=== PATIENT | female | born 1955 | race Caucasian/White ===

== ENCOUNTER 2016-11-18 07:34 | Emergency (ER) | payer MEDICARE ==
[2016-10-06 12:37] VITALS: BMI 23.8
[~2016-11-18 07:34] MED LIST: ASPIRIN81 MG PO; COUMADIN2.5 MG PO; DIOVAN320 MG PO; DYAZIDE 37.5/251 CAP PO; LEVAQUIN500 MG PO; LOPRESSOR25 MG PO; NORVASC5 MG PO
== END 2016-11-18 09:11 | disposition home or self-care (01) ==
LOC: D.ER 07:34
DX: J44.1 Chronic obstructive pulmonary disease with (acute) exacerbation (principal); I48.91 Unspecified atrial fibrillation; F32.9 Major depressive disorder, single episode, unspecified; E78.5 Hyperlipidemia, unspecified; I05.9 Rheumatic mitral valve disease, unspecified; Z95.0 Presence of cardiac pacemaker; N18.3 Chronic kidney disease, stage 3 (moderate); I12.9 Hypertensive chronic kidney disease with stage 1 through stage 4 chronic kidney disease, or unspecified chronic kidney disease

== ENCOUNTER 2016-12-29 11:24 | Outpatient (CLI) | payer MEDICARE ==
[~2016-12-29] VITALS: Ht 154.9 cm; Wt 77.3 kg
--- NOTE | ~2016-12-29 | HEMODYNAMI ---
PATIENT:JACEY SALINAS MEDICAL RECORD: [id number] : 57 LOCATION:[facility] ADMISSION DATE: 12/29/16 Generatedon:12/29/201615:09 Patient name: JACEY SALINAS Patient #: [id number] SSN: : 1955 Date of study: 12/29/2016 Page: Of Hemodynamic Procedure Report Patient Data Patient Demographics Procedure consent was obtained First Name: JACEY Gender: Female Last Name: RITA : 1955 [facility] Initial: C Age: 61 year(s) Patient #: [id number] Race: Additional ID: [id number] Contact details [address]: [address] [place] [address] State: [place] City: [place] Zip code: [address] Past Medical History Allergies Allergen Reaction Date Comments Reported Iodine 12/29/2016 Sulfa drugs 12/29/2016 Other allergy 12/29/2016 HCTZ, Macrobid Admission Admission Data Admission Date: 12/29/2016 Admission Time: 11:24 Lab Results Lab Result Date: 12/29/2016 Lab Result Time: 0:00 Biochemistry Name Units Result Min Max Creatinine mg/dl 1.4 --(----)*- 0.6 1.3 CBC Name Units Result Min Max Hemoglobin g/dl 11.1 *-(----)-- 13.5 17.5 Procedure Procedure Types Cath Procedure Diagnostic Procedure C [facility] w/Coronaries Miscellaneous Procedures Moderate Sedation up to 15 minutes Procedure Description Procedure Date Procedure Date: 12/29/2016 Procedure Start Time: 14:57 Procedure End Time: 15:09 Procedure Staff Name Function Jonas Hubbard MD Performing Physician Lucila Macias RN Nurse Bert Zheng RT Swimming Pool Maintenance Praveen Mckinney RT Scrub Juliette Ortega RT Monitor Procedure Data Cath Procedure Fluoroscopy Diagnostic fluoroscopy Total fluoroscopy Time: 1.3 time: 1.3 min min Diagnostic fluoroscopy Total fluoroscopy dose: 280 dose: 280 mGy mGy Contrast Material Contrast Material Type Amount (ml) Isovue 300 66 Entry Location Entry Primary Successful Side Size Upsize Upsize Entry Closure Succes sful Closure Location (Fr) 1 (Fr) 2 (Fr) Remarks Device Remarks Femoral Right 5 Fr Exoseal artery Estimated blood loss: 5 ml Diagnostic catheters Device Type Used For End Catheter Placement Cordis 5Fr JL 4.0 Left Coronary Catheter (MP) Angiography Cordis 5Fr 3DRC Catheter Right Coronary (MP) Angiography Cordis 5Fr Pigtail LV Angiography Catheter (MP) Procedure Complications No complications Procedure Medications Medication Administration Route Dosage Oxygen NC 2 l/min Lidocaine 2% added to field 20 0.9% NaCl I.V. 100 ml/hr Heparin Flush Bag added to field 2 bags (1000units/500ml NS) Versed I.V. 1 mg Fentanyl I.V. 50 mcg Versed I.V. 1 mg Fentanyl I.V. 50 mcg Versed I.V. 1 mg Fentanyl I.V. 25 mcg Versed I.V. 0.5 mg Hemodynamics Rest HGB: 11.1 (g/dl) Heart Rate: 60 (bpm) Pressure Samples Time Site Value (mmHg) Purpose Heart Use Rate(bpm) 15:03 LV 145/19,34 EDP 51 Gradients Valve Time Site Site Mean SEP/DFP Peak To Heart Use 1 2 (mmHg) (sec/min) Peak Rate (mmHg) (bpm) Aortic 15:04 LV AO 70 Snapshots Pre Cath Intra NCS Post Cath Vital Signs Time Heart Resp SPO2 etCO2 [id number] NIBP (mmHg) Rhythm Pain Sedation Rate (ipm) (%) (mmHg) (mmHg) Status Level (bpm) 14:47:45 59 20 98 0 0 147/80(125) NSR 0 (11) 10(A) , No pain 14:52:03 112 20 92 0 0 152/84(131) NSR 0 (11) 10(A) , No pain 14:56:27 60 19 99 0 0 160/72(135) NSR 0 (11) 9(A) , No pain 15:00:43 59 17 100 0 0 149/87(104) NSR 0 (11) 9(A) , No pain 15:05:44 60 16 99 0 0 143/86(123) NSR 0 (11) 9(A) , No pain 15:08:10 60 16 100 0 0 149/90(122) NSR 0 (11) 10(A) , No pain Medications Time Medication Route Dose Verified Delivered Reason Notes Effe ctiveness by by 14:45:22 Oxygen NC 2 Jonas Gaytan used for l/min [facility] small business banking officer 14:45:32 Lidocaine 2% added 20ml Jonas Mcdaniel for local to vial [facility]. John anesthetic field MD PATE 14:45:46 0.9% NaCl I.V. 100 Jonas Quezadaie Per ml/hr [facility] Macias RN physician 14:46:03 Heparin Flush added 2 Jonas Quezadaie used for Bag to bags [facility] small business banking officer (1000units/500ml field PATE NS) 14:54:09 Versed I.V. 1 mg Jonas Quezadaie for Haydee Macias RN sedation 14:54:14 Fentanyl I.V. 50 Jonas Buffie for mcg [facility] RN sedation 14:56:46 Versed I.V. 1 mg Jonas Quezadaie for [facility] RN sedation 14:56:50 Fentanyl I.V. 50 Jonas Quezadaie for mcg [facility] RN sedation 14:59:38 Versed I.V. 1 mg Jonas Quezadaie for [facility] RN sedation 14:59:42 Fentanyl I.V. 25 Jonas Quezadaie for mcg [facility] RN sedation 15:03:18 Versed I.V. 0.5 Jonas Buffie for mg [facility] RN sedation Procedure Log Time Note 14:32:08 Bert RUDOLPH(R) sent for patient. Start room use. 14:32:09 Time tracking: Regular hours 14:32:14 Plan of Care:Hemodynamics will remain stable., Cardiac rhythm will remain stable., Comfort level will be maintained., Respiratory function will remain adequate., Patient/ family verbilizes understanding of procedure., Procedure tolerated without complication., Recovers from procedure without complications.. 14:45:22 Oxygen 2 l/min NC was given by Lucila Macias RN; used for procedure; 14:45:32 Lidocaine 2% 20ml vial added to field was given by Jonas Hubbard MD; for local anesthetic; 14:45:46 0.9% NaCl 100 ml/hr I.V. was given by Lucila Macias RN; Per physician; 14:46:03 Heparin Flush Bag (1000units/500ml NS) 2 bags added to field was given by Lucila Macias RN; used for procedure; 14:46:37 Vital chart was started 14:49:22 Patient received from Pre/Post Procedure Room to CCL 1 Alert and oriented. Tansferred to table in Supine position. 14:49:23 Warm blankets applied, and jason hugger turned on for patient comfort. 14:49:23 Correct patient and procedure confirmed by team. 14:49:24 Signed procedure consent form obtained from patient. 14:49:25 ECG and BP/O2 sat monitors applied to patient. 14:49:31 Rhythm: paced 14:49:32 Full Disclosure recording started 14:49:47 H&P Date Dictated: 12/24/2016 Within 30 days and on chart., H&P Addendum completed by physician on day of procedure. (MUST COMPLETE FOR ALL OUTPATIENTS). 14:49:49 Pre-procedure instructions explained to patient. 14:49:49 Pre-op teaching completed and patient verbalized understanding. 14:49:52 Family in waiting room. 14:49:53 Patient NPO since Midnight. 14:50:00 Patient allergic to Iodine 14:50:13 Patient allergic to Sulfa drugs 14:50:29 Patient allergic to Other allergyHCTZ, Macrobid 14:50:32 Is the patient allergic to Iodine/contrast media? Yes. 14:50:33 Was the patient premedicated? Yes 14:50:38 Is patient on blood thinner?No 14:50:45 Patient diabetic? No. 14:50:48 Previous problem with sedation/anesthesia? No ? 14:50:52 Snore? Yes 14:50:53 Sleep apnea? Yes 14:50:54 Deviated septum? No 14:50:56 Opens mouth fully? Yes 14:50:57 Sticks out tongue? Yes 14:51:01 Airway obstruction? Yes COPD 14:51:04 Dentures? Yes In 14:51:07 Pre procedure: right dorsailis pedis pulse 2+ Normal; easily identifiable; not easily obliterated 14:51:10 Modified Rolly's test Ulnar > 7 seconds. 14:51:12 Patient pain scale 0/10 ?. 14:51:17 IV patent on arrival in left hand with 0.9% NaCl at [facility]. 14:51:37 Lab Result : Creatinine 1.4 mg/dl 14:51:37 Lab Result : Hemoglobin 11.1 g/dl 14:51:42 Lab results completed and on chart. 14:51:44 Right groin area was prepped with chlora-prep and draped in sterile fashion 14:51:45 Alarms reviewed by R. N. 14:51:46 Sharps counted by scrub and verified by R.N. 14:51:49 Use device set Femoral Dx 14:51:50 Acist Syringe opened to sterile field. 14:51:51 Bag Decanter opened to sterile field. 14:51:51 Medline Cath Pack opened to sterile field. 14:51:52 Terumo 5Fr [place] Sheath opened to sterile field. 14:51:52 St Ashish 260cm J .035 wire opened to sterile field. 14:51:53 Acist Hand Control opened to sterile field. 14:51:54 Acist Manifold opened to sterile field. 14:51:55 Diagnostic Infinity 5Fr Multipack catheter opened to sterile field. 14:51:56 Tegaderm 4 x 4 opened to sterile field. 14:52:50 Baseline sample Acquired. 14:53:39 Final Timeout: patient, procedure, and site verified with staff and physician. All members of the team are in agreement. 14:53:41 Final Timeout: patient, procedure, and site verified with staff and physician. All members of the team are in agreement. 14:53:42 Right groin site verified by team. 14:53:45 Physical assessment completed. ASA score P 2 - A patient with mild systemic disease as per Jonas Hubbard MD. 14:53:48 Sedation plan: IV Moderate Sedation Versed, Fentanyl 14:54:09 Versed 1 mg I.V. was given by Lucila Macias RN; for sedation; 14:54:14 Fentanyl 50 mcg I.V. was given by Lucila Macias RN; for sedation; 14:56:46 Versed 1 mg I.V. was given by uLcila Macias RN; for sedation; 14:56:50 Fentanyl 50 mcg I.V. was given by Lucila Macias RN; for sedation; 14:57:54 Procedure started. 14:57:57 Local anesthetic to right femoral artery with Lidocaine 2% by Jonas Hubbard MD.INITIAL ACCESS ONLY 14:58:30 Zero performed for pressure channel P1 14:59:00 A 5 Fr sheath was inserted into the Right Femoral artery 14:59:16 A Cordis 5Fr JL 4.0 Catheter (MP) was advanced over the wire and used for Left Coronary Angiography. 14:59:38 Versed 1 mg I.V. was given by Lucila Macias RN; for sedation; 14:59:42 Fentanyl 25 mcg I.V. was given by Lucila Macias RN; for sedation; 15:01:07 Catheter removed. 15:01:21 A Cordis 5Fr 3DRC Catheter (MP) was advanced over the wire and used for Right Coronary Angiography. 15:02:28 Catheter removed. 15:02:34 A Cordis 5Fr Pigtail Catheter (MP) was advanced over the wire and used for LV Angiography. 15:03:13 Cordis 5Fr Exoseal opened to sterile field. 15:03:18 Versed 0.5 mg I.V. was given by Lucila Macias RN; for sedation; 15:04:15 LV gram done using ACEVEDO 15:04:17 LV hemodynamics recorded. 15:04:20 Injector settings: Ml/sec: 10, Volume: 20, 15:04:28 Catheter removed. 15:04:42 Sheath removed intact; hemostasis achieved with Exoseal to the Right Femoral artery. 15:04:45 Procedure ended.(Physican Out) 15:04:53 Fluoroscopy time 01.30 minutes. 15:04:57 Fluoroscopy dose: 280 mGy 15:04:57 Flurop Dose total: 280 15:05:00 Contrast amount:Isovue 300 66ml. 15:05:01 Sharps counted by scrub and verified by R.N. 15:05:03 Insertion/operative site no bleeding no hematoma. 15:05:05 Post-op/insertion site Right Femoral artery dressed using a 4 x 4 and Tegaderm. 15:05:09 Post right femoral artery:stable, clean and dry 15:05:11 Post Procedure Pulses reassessed and unchanged 15:05:15 Post-procedure physical assessment completed. ASA score P 2 - A patient with mild systemic disease as per Jonas Hubbard MD. 15:05:17 Post procedure rhythm: unchanged. 15:05:20 Estimated blood loss: 5 ml 15:05:22 Post procedure instruction explained to patient.Patient verbalizes understanding. 15:05:22 Patient needs reinforcement of post procedure teaching. 15:05:32 Procedure Complication : No complications 15:05:36 See physician's report for complete and final results. 15:05:42 Procedure type changed to Cath procedure, Diagnostic procedure, LHC, LHC w/Coronaries, Miscellaneous Procedures, Moderate Sedation up to 15 minutes 15:08:47 Procedure and supply charges have been captured, reviewed, submitted and are correct. 15:08:54 Vital chart was stopped 15:08:56 Report given to Pre/Post Procedure Room. 15:09:00 Patient transfered to Pre/Post Procedure Room with Stretcher. 15:09:10 Procedure ended. 15:09:10 Full Disclosure recording stopped 15:09:15 End room use (Document Last) Device Usage Item Name Manufacture Quantity Catalog Hospital Part Current Minimal Lo t# / Number Charge Number Stock Stock Serial# Code Acist Acist 1 10287 065508 156996 842528 20 Syringe [employer] Bag Microtek 1 2002S 243884 26321 672509 5 Decanter [employer] Inc. Medline Cardinal 1 [id number] 014456 92641 222841 5 Cath Pack Health Terumo 5Fr Terumo 1 [id number] [id number] 448847 502946 [address] [place] [address] St Ashish 1 604476 305756 832275 515026 30 260cm J .035 wire Acist Hand Acist 1 06594 982671 705994 913166 5 Control [employer] Inc Acist Acist 1 04627 838019 788953 336140 5 Manifold Medical Systems Inc Diagnostic Cardinal 1 [id number] 905852 63601 665599 30 Infinity Health 5Fr Multipack catheter Tegaderm 4 3M 1 1626W 094466 714426 968606 5 x 4 Cordis 5Fr Cardinal 1 526857 5 JL 4.0 Health Catheter (MP) Cordis 5Fr Cardinal 1 [id number] 5 3DRC Health Catheter (MP) Cordis 5Fr Cardinal 1 300000 5 Pigtail Health Catheter (MP) Cordis 5Fr Cardinal 1 EX500 082683 538844 344789 10 uParts Signature Audit [place] Stage Time Signature Unsigned Intra-Procedure 12/29/2016 Juliette 3:09:26 PM Counts RT(R) Signatures Monitor : Juliette Signature : Counts RT Date : Time : [address] [place] [address]
[2016-12-29 12:35] LABS: ANION GAP 16.9 mmol/L (8-16); CALCIUM 9.1 mg/dL (8.5-10.1); CARBON DIOXIDE 22.3 mmol/L (21.0-32.0); CREATININE - SERUM 1.4 mg/dL (0.6-1.3); POTASSIUM - SERUM 4.2 mmol/L (3.5-5.1)
[2016-12-29 13:00] LABS: BASOPHILS 0.1 % (0.0-2.0); EOSINOPHILS 0 % (0-7); HEMATOCRIT 33.6 % (36.0-48.0); HEMOGLOBIN 11.1 g/dL (12-16); IMMATURE GRANULOCYTES 0.3 % (0-5); LYMPHOCYTES 5.9 % (15-50); MCH 30.7 pg (26.0-34.0); MCV 92.8 fL (80.0-100.0); MEAN PLATELET VOLUME 11.8 fL (7.4-10.4); MONOCYTES 3.3 % (2-11); NEUTROPHILS 90.4 % (40-80); PLATELET COUNT 234 10x3/uL (130-400); RBC 3.62 10x6/uL (4.00-5.40); RDW 15.2 % (11.5-14.5); WBC 17.7 10x3/uL (4.8-10.8)
[2016-12-29] MEDS ORDERED: DESERYL100 MG PO (13:00)
[2016-12-29] MEDS ORDERED: ZANTAC300 MG PO (13:00)
[2016-12-29] MEDS ORDERED: CELEXA40 MG PO (13:01)
[2016-12-29] MEDS ORDERED: ZOCOR40 MG PO (13:01)
[2016-12-29 13:07] VITALS: BP 142/77; Ht 154.9 cm; Wt 77.3 kg
--- NOTE | 2016-12-29 15:49 | NUR ---
1545- RESTING, RIGHT GROIN- CDI, NO HEMATOMA NOTED
--- NOTE | 2016-12-29 18:45 | NUR ---
1710- UP TO RESTROOM, VOID, IV D'C WITH CATH TIP INTACT, WRITTEN AND VERBAL INSTRUCTIONS GIVEN TO PT AND DAUGHTER. DAUGHTER COMFORTABLE WITH INSTRUCTIONS.
--- NOTE | 2017-01-05 13:35 | OP ---
PATIENT NAME: JACEY SALINAS MEDICAL RECORD: [id number] :57 LOCATION:D.CAT ADMISSION DATE: SURGEON: EDELMIRA GALAN MD DATE OF OPERATION: 12/29/2016 PROCEDURE: Left heart catheterization, selective coronary angiography, right femoral approach. CATHETERS: A 5-[place]amanian sheath, 5/4 left and right Dipti, 5/4 pig. The procedure was well tolerated. The patient returned to the rodrigues. Sheath was removed. ExoSeal device placed. FINDINGS: Left ventriculography in 30-degree ACEVEDO view: Normal wall motion, normal systolic function. CORONARY ANATOMY: Left main: Left main is free of disease. LAD: Free of disease in the diagonal system. CIRCUMFLEX: Free of disease in the marginal system. RIGHT CORONARY ARTERY: Dominant artery, gives rise to PDA, free of disease. IMPRESSION: Normal systolic function. Normal coronary anatomy. TRANSINT:[id number] Voice Confirmation ID: [id number] DOCUMENT ID: [id number] EDELMIRA GALAN MD at 1335 CC: [id number] DICTATION DATE: 12/29/16 151 WIRELESS FIELD TECHNICIAN: 12/29/162050 DEP CLI 12/29/16 [facility] [address] [facility] [place] [address]
== END 2016-12-29 17:20 | disposition home or self-care (01) ==
LOC: D.CATH 11:24
PROVIDERS: Internal Medicine Interventional Cardiology
DX: I25.119 Atherosclerotic heart disease of native coronary artery with unspecified angina pectoris (principal); I10 Essential (primary) hypertension; E78.5 Hyperlipidemia, unspecified; I49.5 Sick sinus syndrome; Z95.0 Presence of cardiac pacemaker; F17.200 Nicotine dependence, unspecified, uncomplicated

== ENCOUNTER → 2017-03-11 20:11 | Outpatient (CLI) | payer MEDICARE ==
[2016-12-29 13:07] VITALS: BMI 32.2
[~2017-03-11 20:11] MED LIST changes: +CELEXA40 MG PO; +DESERYL100 MG PO; +ZANTAC300 MG PO; +ZOCOR40 MG PO
[2017-03-11 21:42] LABS: INR 3.17 (0.85-1.17); PROTIME 32.8 SECONDS (11.6-15.0)
== END | disposition home or self-care (01) ==
LOC: D.LABREF 20:11
PROVIDERS: Family Medicine
DX: J44.9 Chronic obstructive pulmonary disease, unspecified (principal)

== ENCOUNTER 2018-02-23 10:31 | Outpatient (CLI) | payer MEDICARE ==
[~2018-02-23] VITALS: Ht 154.9 cm; Wt 77.9 kg
--- NOTE | ~2018-02-23 | OP ---
PATIENT NAME: JACEY SALINAS MEDICAL RECORD: [id number] :57 LOCATION:D.CAT ADMISSION DATE: SURGEON: EDELMIRA GALAN MD DATE OF OPERATION: 02/23/2018 PROCEDURE: Lead portion of permanent pacemaker placement. INDICATION: Generator end of life, marked increase in thresholds in underlying lead placed previously. DESCRIPTION OF PROCEDURE: After the previous pocket was opened via Dr. Dunlap and the left subclavian was cannulated via the modified Seldinger technique under fluoroscopic guidance, I placed the new ventricular lead into the RV apex without difficulty. After good thresholds and R waves were obtained, the previous lead was capped appropriately and the new generator was placed and the new lead was placed to the new generator and the pocket was closed via Dr. Dunlap. IMPRESSION: Successful lead portion of permanent pacemaker placement. ESTIMATED BLOOD LOSS: Minimal. COMPLICATIONS: None. DISPOSITION: To the floor, stable. TRANSINT:[id number] Voice Confirmation ID: [id number] DOCUMENT ID: [id number] EDELMIRA GALAN MD at 1325 CC: [id number] DICTATION DATE: 02/23/18 1452 STEM DRYER MAINTAINER: 02/23/18 1502 DEP CLI 02/24/18 [id number] [place] [address]
--- NOTE | ~2018-02-23 | HEMODYNAMI ---
PATIENT:JACEY SALINAS MEDICAL RECORD: [id number] : 57 LOCATION:[facility] ADMISSION DATE: 02/23/18 Generatedon:02/23/201814:57 Patient name: JACEY SALINAS Patient #: [id number] : 1955 Date of study: 02/23/2018 Page: Of Hemodynamic Procedure Report Patient Data Patient Demographics Procedure consent was obtained First Name: JACEY Gender: Female Last Name: RITA : 1955 Middle Initial: JOSR Age: 62 year(s) Patient #: [id number] Race: SSN: [id number] Additional ID: [id number] Contact details [address]: [address] [place] [address] State: [place] City: [place] Zip code: [address] Past Medical History Allergies Allergen Reaction Date Comments Reported Iodine 12/29/2016 Sulfa drugs 12/29/2016 Other allergy 12/29/2016 HCTZ, Macrobid Other allergy 02/23/2018 Iodine, Hctz, Procain, Erythromicin, Macrobid, Sulfa Admission Admission Data Admission Date: 02/23/2018 Admission Time: 10:31 Arrival Date: 02/23/2018 Arrival Time: 13:30 Admit Source: Other Insurance Payor: Medicare Height (in.): 61 BSA: 1.8 (m2) Height (cm.): 154.94 BMI: 33.63 (kg/m2) Weight (lbs.): 178 Weight (kg.): 80.74 Lab Results Lab Result Date: 02/23/2018 Lab Result Time: 13:00 Biochemistry Name Units Result Min Max BUN mg/dl 19 --(----)*- 7 18 Creatinine mg/dl 1.6 --(----)-* 0.6 1.3 CBC Name Units Result Min Max Hematocrit % 42.2 --(*---)-- 42 54 Hemoglobin g/dl 14.3 --(*---)-- 13.5 17.5 Procedure Procedure Types Cath Procedure Diagnostic Procedure PPM/ICD Permanent Pacer Generator Exg. Lead Replacement Single Sedation Charges Moderate Sedation up to 15 minutes Procedure Description Procedure Date Procedure Date: 02/23/2018 Procedure Start Time: 14:29 Procedure End Time: 14:56 Procedure Staff Name Function Jonas Costa MD Performing Physician [place] MD Assisting physician Praveen Mckinney RT Monitor Batool Kuo RT Scrub Virgilio Schuster RN Nurse Juan Arias RN Cherry Dipper Aileen Rios RT Monitor Procedure Data Cath Procedure Fluoroscopy Diagnostic fluoroscopy Total fluoroscopy Time: 1 time: 1 min min Diagnostic fluoroscopy Total fluoroscopy dose: dose: 45.23 mGy 45.23 mGy Contrast Material Contrast Material Type Amount (ml) Isovue 300 0 Estimated blood loss: 5 ml Procedure Complications No complications Procedure Medications Medication Administration Route Dosage Oxygen etCO2 Nasal cannula 2 l/min Ancef (1Gm/50ml NS) I.V.P.B 1 g Ancef Irrigation Topical 1 g (1gm/500ml NS) 0.9% NaCl I.V. 100 ml/hr Versed I.V. 2 mg Fentanyl I.V. 100 mcg Versed I.V. 2 mg Fentanyl I.V. 50 mcg Hemodynamics Rest BSA: 1.8 (m2) HGB: 14.3 (g/dl) O2 Consumption: Estimated: 166.8 (ml/min) O2 Cons umption indexed: Estimated:92.67 (ml/min/m) Heart Rate: 65 (bpm) Snapshots Pre Cath Intra NCS Post Cath Vital Signs Time Heart Resp SPO2 etCO2 NIBP (mmHg) Rhythm Pain Sedation Rate (ipm) (%) (mmHg) Status Level (bpm) 14:13:13 65 16 100 31.3 160/87(134) NSR 0 (11) 10(A) , No pain 14:17:52 64 15 100 29.8 153/86(133) NSR 0 (11) 10(A) , No pain 14:22:31 64 16 100 28.3 146/80(117) NSR 0 (11) 10(A) , No pain 14:27:07 65 15 100 29 139/80(120) NSR 0 (11) 10(A) , No pain 14:31:36 65 19 100 32 144/84(119) NSR 0 (11) 10(A) , No pain 14:36:06 71 10 91 29 132/73(115) NSR 0 (11) 9(A) , No pain 14:40:34 65 12 100 19.3 137/75(114) NSR 0 (11) 9(A) , No pain 14:45:04 60 16 100 0 129/75(111) NSR 0 (11) 9(A) , No pain 14:49:25 60 17 100 29.8 143/83(100) NSR 0 (11) 10(A) , No pain 14:53:53 60 14 100 29 135/81(111) NSR 0 (11) 10(A) , No pain Medications Time Medication Route Dose Verified Delivered Reason Notes Effective ness by by 14:12:12 Oxygen etCO2 2 Jonas Virgilio Per Nasal l/min JulissaRicardo Schuster physician cannula MD [facility] 14:12:21 Ancef I.V.P.B 1 g Jonas Virgilio Per (1Gm/50ml JulissaRicardo Schuster physician NS) MD [facility] 14:12:27 Ancef Topical 1 g Jonas Virgilio used for Irrigation Julissa Landen procedure (1gm/500ml MD [facility] NS) 14:16:06 0.9% NaCl I.V. 100 Jonas Virgilio Per ml/hr Julissa Lorjosselin physician MD [facility] 14:26:44 Versed I.V. 2 mg Jonas Virgilio for Julissa Lorigan sedation MD [facility] 14:27:00 Fentanyl I.V. 100 Jonas Virgilio for mcg Julissa Lorigan sedation MD [facility] 14:29:21 Versed I.V. 2 mg Jonas Virgilio for Julissa Lorigan sedation MD [facility] 14:33:39 Fentanyl I.V. 50 Jonas Virgilio for [facility] Julissa Lorigan sedation MD WALTONsheet tester Log Time Note 13:59:17 Informed consent obtained and on chart 13:59:20 Admit Source: Other 13:59:43 Juan Arias RN sent for patient. Start room use. 13:59:44 Time tracking: Regular hours 13:59:50 Plan of Care:Hemodynamics will remain stable., Cardiac rhythm will remain stable., Comfort level will be maintained., Respiratory function will remain adequate., Patient/ family verbilizes understanding of procedure., Procedure tolerated without complication., Recovers from procedure without complications.. 14:00:06 H&P Date Dictated: 02/13/2018 Within 30 days and on chart., H&P Addendum completed by physician on day of procedure. (MUST COMPLETE FOR ALL OUTPATIENTS). 14:03:02 Lab Result : BUN 19 mg/dl 14:03:02 Lab Result : Creatinine 1.6 mg/dl 14:03:02 Lab Result : Hemoglobin 14.3 g/dl 14:03:02 Lab Result : Hematocrit 42.2 % 14:07:59 Patient received from Pre/Post Procedure Room to CCL 3 Alert and oriented. Tansferred to table in Supine position. 14:08:00 Warm blankets applied, and jason hugger turned on for patient comfort. 14:08:01 Correct patient and procedure confirmed by team. 14:08:01 ECG and BP/O2 sat monitors applied to patient. 14:08:03 Pre-procedure instructions explained to patient. 14:08:03 Pre-op teaching completed and patient verbalized understanding. 14:08:05 Family in waiting room. 14:08:06 Patient NPO since Midnight. 14:11:34 Vital chart was started 14:12:12 Oxygen 2 l/min etCO2 Nasal cannula was administered by Virgilio Schuster RN; Per physician; 14:12:21 Ancef (1Gm/50ml NS) 1 g I.V.P.B was administered by Virgilio Schuster RN; Per physician; 14:12:27 Ancef Irrigation (1gm/500ml NS) 1 g Topical was administered by Virgilio Schuster RN; used for procedure; 14:16:06 0.9% NaCl 100 ml/hr I.V. was administered by Virgilio Schuster RN; Per physician; 14:21:10 Patient allergic to Other allergyIodine, Hctz, Procain, Erythromicin, Macrobid, Sulfa 14:21:12 Is the patient allergic to Iodine/contrast media? Yes. 14:21:13 Was the patient premedicated? No 14:21:16 Is patient on blood thinner?Yes 14:21:19 Patient diabetic? No. 14:21:22 Previous problem with sedation/anesthesia? No ? 14:21:23 Snore? Yes 14:21:24 Sleep apnea? Yes 14:21:25 Deviated septum? No 14:21:25 Opens mouth fully? Yes 14:21:26 Sticks out tongue? Yes 14:21:29 Airway obstruction? Yes COPD 14:21:34 Dentures? Yes OUT 14:21:37 Patient pain scale 0/10 ?. 14:21:42 IV patent on arrival in left forearm with 0.9% NaCl at [facility]. 14:21:46 Lab results completed and on chart. 14:21:55 Medtronic technical service representative Earle Betancourt present for procedure. 14:22:01 Use device set ANIBAL PPM 14:22:04 Immobilizer Extra Large opened to sterile field. 14:22:05 Cautery Tip Crew Leader/Control Room Operator opened to sterile field. 14:22:06 Cautery Pushbutton Pencil opened to sterile field. 14:22:07 2-0 Ticron Multipack ([id number]) opened to sterile field. 14:22:08 3-0 Vicryl Single Pack [id number] opened to sterile field. 14:22:08 5-0 Monocryl PS2 [id number] opened to sterile field. 14:22:10 Mepilex Dressing (915835) opened to sterile field. 14::55 Baseline sample Acquired. 14:24:04 Rhythm: paced 14:24:05 Full Disclosure recording started 14:24:10 Physician arrived 14:24:11 --------ALL STOP TIME OUT------ 14:24:11 Final Timeout: patient, procedure, and site verified with staff and physician. All members of the team are in agreement. 14:24:19 Left chest site verified by team. 14:24:25 Physical assessment completed. ASA score P 2 - A patient with mild systemic disease as per Jonas Costa MD. 14:24:32 Sedation plan: IV Moderate Sedation Medication:Versed, Fentanyl 14:24:46 Pre sharps counted by scrub and verified by RN: Sutures: 14; Sponges: 5; Stick needles: 1; Skin needles: 2; Blade: 1; Cautery: 1 14:24:50 Grounding pad site Left thigh. 14:24:50 Grounding pad site free from injury. 14:26:44 Versed 2 mg I.V. was administered by Virgilio Schuster RN; for sedation; 14:27:00 Fentanyl 100 mcg I.V. was administered by Virgilio Schuster RN; for sedation; 14:27:19 Medtronic Adapta PPM Single Generator [id number] opened to sterile field. 14:29:02 Medtronic 4074-52 PPM Lead opened to sterile field. 14:29:09 Procedure started. 14:29:13 Lidocaine 1% was administered to left subclavicular area by [place] MD . 14:29:21 Versed 2 mg I.V. was administered by Virgilio Schuster RN; for sedation; 14:29:56 Incision made to left subclavicular area. 14:33:39 Fentanyl 50 mcg I.V. was administered by Virgilio Schuster RN; for sedation; 14:34:06 Generator pocket made/opened. 14:39:03 Left subclavian vein accessed with 7Fr Peel Away Sheath. 14:39:07 Ventricular lead inserted and advanced. 14:42:30 Ventricular lead positioned. 14:42:32 Ventricular lead tested. 14:42:33 Peel-a-way sheath was split and removed. 14:42:46 Ventricular lead attachment was completed with 2-0 ticron. 14:42:58 PPM Single was removed.. 14:43:53 Device pocket was irrigated with Ancef. 14:44:04 PPM Single was attached to lead(s) and inserted into pocket. 14:44:42 Generator was sutured in place with 2-0 ticron. 14:44:48 Subcutaneous closure was completed with 3-0 vicryl plus. 14:46:43 Skin closure was completed with 5-0 monocryl. 14:47:20 Parameters-- Generator: Mode: VVIR. Lower Rate: 60bpm. Upper Rate: 120bpm. 14:47:49 Parameters--Ventricular P/R Wave: 12.3mV. Current: 0.2mA; Threshold: 0.2V; Impedence: 1280OHMS. 14:52:20 Patient Height : 61 inches 14:52:28 Patient Weight : 178 lbs 14:52:28 Insurance Payor : Medicare 14:52:30 Arrival Date: 02/23/2018 1:30:00 PM 14:53:31 Procedure ended.(Physican Out) 14:53:47 Fluoroscopy time 01.00 minutes. 14:53:55 Fluoroscopy dose: 45.23 mGy 14:53:55 Flurop Dose total: 45.23 14:54:28 Contrast amount:Isovue 300 0ml. 14:54:30 Sharps counted by scrub and verified by R.N. 14:54:59 Insertion/operative site no bleeding no hematoma. 14:55:01 Post Procedure Pulses reassessed and unchanged 14:55:05 Post procedure rhythm: paced 14:55:07 Estimated blood loss: 5 ml 14:55:09 Post procedure instruction explained to patient.Patient verbalizes understanding. 14:55:09 Patient needs reinforcement of post procedure teaching. 14:55:42 Procedure type changed to Cath procedure, Diagnostic procedure, PPM/ICD, Permanent Pacer Generator Exg., Lead Replacement Single, Sedation Charges, Moderate Sedation up to 15 minutes 14:55:43 Procedure and supply charges have been captured, reviewed, submitted and are correct. 14:55:48 Procedure Complication : No complications 14:55:51 Vital chart was stopped 14:55:52 See physician's report for complete and final results. 14:56:13 Report given to Pre/Post Procedure Room. 14:56:16 Patient transfered to Pre/Post Procedure Room with Stretcher. 14:56:19 Procedure ended. 14:56:19 Full Disclosure recording stopped 14:56:29 End room use (Document Last) Device Usage Item Name Manufacture Quantity Catalog Hospital Part Current Minimal Lot# / Serial# Number Charge Number Stock Stock Code Immobilizer Cardinal 1 [id number] 5 Extra Large Health Cautery Tip Microtek 1 [id number] 051667 061768 [id number] 5 Crew Leader/Control Room Operator [employer] Cautery Microtek 1 [id number] 573860 10005 [id number] 5 Pushbutton [employer] Pencil 2-0 Ticron Ethicon 0 [id number] [id number] 02170 [id number] 5 Multipack ([id number]) 3-0 Vicryl Ethicon 1 [id number] 917249 298622 [id number] 5 Single Pack [id number] 5-0 Monocryl Ethicon 1 [id number] 093221 190016 567347 5 PS2 Y495G Mepilex Cardinal 1 [id number] 979936 617415 651780 5 [facility] ([id number]) Medtronic Medtronic 1 ADSR01 [id number] 5 2019-03-11 Adapta PPM SN:[id number] Single Generator ADSR01 Medtronic Medtronic 1 4074-52 714072 [id number] 5 2019-09-20 4074-52 PPM SN:[id number] Lead Signature Audit [address] Stage Time Signature Unsigned Intra-Procedure 02/23/2018 Aileen Rios 2:57:35 PM RT(R) Signatures Monitor : Praveen Mckinney RT Signature : Date : Time : Monitor : Aileen Rios RT Signature : Date : Time : [address] [address]
--- NOTE | ~2018-02-23 | OP ---
PATIENT NAME: JACEY SALINAS MEDICAL RECORD: [id number] :57 LOCATION:[facility] ADMISSION DATE: SURGEON: LES BARNETT MD DATE OF OPERATION: 02/23/2018 PREOPERATIVE DIAGNOSES: 1. Pacemaker in situ. 2. Atrial fibrillation. 3. Hypertension. 4. Hypercholesterolemia. POSTOPERATIVE DIAGNOSES: 1. Pacemaker in situ. 2. Atrial fibrillation. 3. Hypertension. 4. Hypercholesterolemia. PROCEDURE: 1. Left subclavian vein single lead pacemaker placement. 2. Capping of left subclavian vein pacemaker lead. 3. Fluoroscopic interpretation. SURGEON: Les Barnett MD REPORT OF PROCEDURE: The patient's left chest was prepped and draped in sterile fashion. A 25 mL of 1% lidocaine with epinephrine was infused into the surrounding tissues. A skin incision was made on the left superior lateral chest overlying and then dwelling single lead pacemaker. The pacemaker was freed up and eviscerated from the tissues. We accessed the right subclavian vein and a guidewire was advanced with ease. Fluoro was used to note that the wire was in good position in the venous system. A dilator trocar device was placed over the wire and the wire and dilator were removed. A new ventricular lead was inserted through the trocar. At this point, Dr. Hubbard positioned the lead in the patient's right ventricle. Once it was noted to be functioning appropriately, then the lead was sutured into place with a 0 Ti-Cron. The new pacemaker was affixed to this new lead and placed into the subcutaneous pouch. The old pacemaker was detached from the lead and the lead was capped off. A 3-0 Vicryl was used to tie off the cap. This capped lead was then placed into the subcutaneous pouch. The pacemaker was sutured down with an interrupted 0 Ti-Cron. We then irrigated out the wound with antibiotic solution. The subcutaneous tissues were reapproximated with interrupted 3-0 Vicryls and the skin was closed with running subcutaneous 5-0 Monocryl. COMPLICATIONS: None. CONDITION: Stable. ANESTHESIA: Local MAC. BLOOD LOSS: Minimal. TRANSINT:[id number] Voice Confirmation ID: [id number] DOCUMENT ID: [id number] OPERATIVE REPORT [id number] JACEY SALINAS CHRISTIAN MD at 0841 CC: [id number] DICTATION DATE: 02/23/18 1457 FUEL MANAGEMENT HANDLER: 02/23/18 1509 DEP CLI 02/24/18 [place] [id number] [place] [id number]
[2018-02-23] MEDS ORDERED: XANAX0.5 MG PO (11:24)
[2018-02-23] MEDS ORDERED: NORVASC5 MG PO (11:25)
[2018-02-23] MEDS ORDERED: LIPITOR10 MG PO (11:25)
[2018-02-23 11:38] VITALS: BP 142/76; BMI 33.7
[2018-02-23 12:19] LABS: HEMATOCRIT 42.2 % (36.0-48.0); HEMOGLOBIN 14.3 g/dL (12-16); MCH 31.4 pg (26.0-34.0); MCHC 33.9 g/dL (31.0-37.0); MCV 92.5 fL (80.0-100.0); MEAN PLATELET VOLUME 11.9 fL (7.4-10.4); RBC 4.56 10x6/uL (4.00-5.40); RDW 13.7 % (11.5-14.5); WBC 7.8 10x3/uL (4.8-10.8)
[2018-02-23 12:20] LABS: CALCIUM 9.3 mg/dL (8.5-10.1); CARBON DIOXIDE 26.4 mmol/L (21.0-32.0); CREATININE - SERUM 1.6 mg/dL (0.6-1.3); POTASSIUM - SERUM 4.4 mmol/L (3.5-5.1)
[2018-02-23 12:55] LABS: INR 1.14 (0.85-1.17)
[2018-02-23 12:57] LABS: APTT 24.5 SECONDS (22.8-39.4)
[2018-02-23 13:55] LABS: APPEARANCE CLOUDY (CLEAR); COLOR YELLOW (YELLOW); SPECIFIC GRAVITY 1.015 (1.005-1.020)
[2018-02-23 13:56] LABS: BACTERIA MANY /hpf (NONE SEEN); BILIRUBIN NEGATIVE (NEGATIVE); EPITHELIAL CELLS RARE /hpf (0-5); GLUCOSE NEGATIVE (NEGATIVE); KETONE NEGATIVE (NEGATIVE); MUCUS <1+ /lpf (NONE SEEN); NITRITE POSITIVE (NEGATIVE); PROTEIN NEGATIVE (NEGATIVE); RED CELLS - URINE 0-5 /hpf (0-5); UROBILINOGEN NORMAL (NORMAL); WHITE CELLS - URINE 25-50 /hpf (0-5)
[2018-02-23 16:42] VITALS: BP 144/70; Ht 154.9 cm; Wt 77.9 kg
[2018-02-23 22:13] VITALS: BP 152/80
[2018-02-24 01:26] VITALS: BP 113/55
[2018-02-24 05:00] VITALS: BP 111/57
[2018-02-24 08:38] VITALS: BP 153/75
== END 2018-02-24 10:10 | disposition home or self-care (01) ==
LOC: D.CATH 10:31 → D.M2 16:25 → D.CATH 02-24 10:10 → D.SDCHOLD 02-24 14:04 → D.M2 02-24 14:04
PROVIDERS: Internal Medicine Interventional Cardiology
DX: I49.5 Sick sinus syndrome (principal); T82.110A Breakdown (mechanical) of cardiac electrode, initial encounter; Z45.010 Encounter for checking and testing of cardiac pacemaker pulse generator [battery]; I48.91 Unspecified atrial fibrillation; I10 Essential (primary) hypertension; E78.00 Pure hypercholesterolemia, unspecified; Z01.812 Encounter for preprocedural laboratory examination

== ENCOUNTER 2018-08-17 04:22 | Inpatient (IN) | payer MEDICARE ==
[~2018-08-17] VITALS: Ht 154.9 cm; Wt 72.6 kg
[~2018-08-17 04:22] MED LIST changes: +LIPITOR10 MG PO; +XANAX0.5 MG PO
[2018-08-17 05:03] LABS: BASOPHILS 0.2 % (0-2); EOSINOPHILS 0.1 % (0-7); HEMATOCRIT 40.8 % (36.0-48.0); IMMATURE GRANULOCYTES 0.3 % (0-5); LYMPHOCYTES 4.3 % (15-50); MCH 30.6 pg (26.0-34.0); MCHC 34.3 g/dL (31.0-37.0); MCV 89.3 fL (80.0-100.0); MEAN PLATELET VOLUME 11.5 fL (7.4-10.4); MONOCYTES 7.5 % (2-11); NEUTROPHILS 87.6 % (40-80); PLATELET COUNT 178 10x3/uL (130-400); RBC 4.57 10x6/uL (4.00-5.40); WBC 19.8 10x3/uL (4.8-10.8)
[2018-08-17 05:17] LABS: ALBUMIN 3.6 g/dL (3.4-5.0); ALKALINE PHOSPHATASE 71 U/L (46-116); ALT (SGPT) 22 U/L (10-68); CALC OSMOLALITY 281 mosm/kg (275-300); CALCIUM 8.7 mg/dL (8.5-10.1); CHLORIDE - SERUM 104 mmol/L (98-107); CREATININE - SERUM 1.5 mg/dL (0.6-1.3); PROTEIN - SERUM 7.1 g/dL (6.4-8.2); SODIUM 139 mmol/L (136-145); UREA NITROGEN 16 mg/dL (7-18); eGFR NON AFRICAN AMERICAN 37 mL/min (90-120)
[2018-08-17 05:23] LABS: GLUCOSE 145 mg/dL (74-106)
[2018-08-17 05:27] LABS: APPEARANCE CLOUDY (CLEAR); COLOR YELLOW (YELLOW); NITRITE POSITIVE (NEGATIVE); PROTEIN 3+ mg/dL (NEGATIVE)
[2018-08-17 05:28] LABS: BILIRUBIN NEGATIVE (NEGATIVE); GLUCOSE NEGATIVE (NEGATIVE); KETONE NEGATIVE (NEGATIVE); UROBILINOGEN NORMAL (NORMAL)
[2018-08-17 05:29] LABS: AMYLASE - SERUM 34 U/L (25-115); CKMB 2.1 U/L (0.0-3.6); CREATINE KINASE 115 UL (21-215); LIPASE 168 U/L (73-393)
[2018-08-17 05:30] LABS: BACTERIA MANY /hpf (NONE SEEN); EPITHELIAL CELLS 0-5 /hpf (0-5); RED CELLS - URINE 0-5 /hpf (0-5)
[2018-08-17 05:30] LABS: TROPONIN-I < 0.017 ng/mL (0.000-0.060)
[2018-08-17 05:50] VITALS: BP 141/67
[2018-08-17 07:45] VITALS: BP 126/68; BMI 30.3
[2018-08-17 08:19] VITALS: BP 126/68
[2018-08-17 09:43] LABS: INR 4.46 (0.85-1.17); PROTIME 41.6 SECONDS (11.6-15.0)
[2018-08-17 10:58] VITALS: Ht 154.9 cm; Wt 72.6 kg
[2018-08-17 11:52] VITALS: BP 138/69
[2018-08-17] MEDS ORDERED: ACETAMINOPHEN500 M1 PO (12:55)
[2018-08-17] MEDS ORDERED: COUMADIN2 MG PO (12:56)
[2018-08-17] MEDS ORDERED: VENTOLIN HFA18 GM INH (12:56)
[2018-08-17] MEDS ORDERED: CATAPRES0.1 MG PO (12:58)
[2018-08-17] MEDS ORDERED: XANAX0.5 MG PO (12:58)
[2018-08-17 16:10] VITALS: BP 128/70
[2018-08-17 20:00] VITALS: BP 134/62
[2018-08-18] VITALS: BP 149/76
[2018-08-18 04:00] VITALS: BP 155/76
[2018-08-18 06:24] LABS: BASOPHILS 0.3 % (0-2); EOSINOPHILS 0.7 % (0-7); HEMATOCRIT 38.3 % (36.0-48.0); HEMOGLOBIN 12.9 g/dL (12-16); IMMATURE GRANULOCYTES 0.2 % (0-5); LYMPHOCYTES 15.5 % (15-50); MCH 30.4 pg (26.0-34.0); MCHC 33.7 g/dL (31.0-37.0); MCV 90.3 fL (80.0-100.0); MEAN PLATELET VOLUME 12.2 fL (7.4-10.4); MONOCYTES 6.7 % (2-11); NEUTROPHILS 76.6 % (40-80); PLATELET COUNT 149 10x3/uL (130-400); RBC 4.24 10x6/uL (4.00-5.40); RDW 14.3 % (11.5-14.5)
[2018-08-18 06:27] LABS: WBC 9.6 10x3/uL (4.8-10.8)
[2018-08-18 06:29] LABS: INR 2.73 (0.85-1.17); PROTIME 28.2 SECONDS (11.6-15.0)
[2018-08-18 06:31] LABS: ALBUMIN 3.1 g/dL (3.4-5.0); ANION GAP 10.3 mmol/L (8-16); BILIRUBIN - TOTAL 1.02 mg/dL (0.2-1.3); CALCIUM 7.8 mg/dL (8.5-10.1); CARBON DIOXIDE 25.5 mmol/L (21.0-32.0); CREATININE - SERUM 1.2 mg/dL (0.6-1.3); POTASSIUM - SERUM 3.8 mmol/L (3.5-5.1); PROTEIN - SERUM 6.4 g/dL (6.4-8.2)
[2018-08-18 09:00] VITALS: BP 150/75
[2018-08-18 12:00] VITALS: BP 131/76
[2018-08-18 16:00] VITALS: BP 129/69
[2018-08-18 20:02] VITALS: BP 168/94
[2018-08-19 00:35] VITALS: BP 124/66
[2018-08-19 05:30] LABS: BASOPHILS 0.5 % (0-2); EOSINOPHILS 1.6 % (0-7); HEMATOCRIT 36.3 % (36.0-48.0); HEMOGLOBIN 12.1 g/dL (12-16); IMMATURE GRANULOCYTES 0.1 % (0-5); LYMPHOCYTES 22.3 % (15-50); MCH 30.1 pg (26.0-34.0); MCHC 33.3 g/dL (31.0-37.0); MCV 90.3 fL (80.0-100.0); MEAN PLATELET VOLUME 12.2 fL (7.4-10.4); MONOCYTES 8.9 % (2-11); NEUTROPHILS 66.6 % (40-80); PLATELET COUNT 159 10x3/uL (130-400); RBC 4.02 10x6/uL (4.00-5.40); RDW 14.3 % (11.5-14.5); WBC 7.9 10x3/uL (4.8-10.8)
[2018-08-19 05:44] LABS: ANION GAP 9.4 mmol/L (8-16); CARBON DIOXIDE 24.3 mmol/L (21.0-32.0); CREATININE - SERUM 1.3 mg/dL (0.6-1.3); POTASSIUM - SERUM 3.7 mmol/L (3.5-5.1)
[2018-08-19 05:51] LABS: INR 2.66 (0.85-1.17); PROTIME 27.7 SECONDS (11.6-15.0)
[2018-08-19 06:19] VITALS: BP 125/87
[2018-08-19 07:42] VITALS: BP 146/89
[2018-08-19 12:30] VITALS: BP 158/91
[2018-08-19] MEDS ORDERED: CIPRO500 MG PO (12:34)
== END 2018-08-19 16:08 | disposition home or self-care (01) | DRG 872 ==
LOC: D.ER 04:22 → D.M3 06:41 → D.ER 06:56 → D.M3 08-19 16:08
PROVIDERS: Family Medicine
DX: A41.9 Sepsis, unspecified organism (principal); N39.0 Urinary tract infection, site not specified; J44.9 Chronic obstructive pulmonary disease, unspecified; I48.2 Chronic atrial fibrillation; Z79.01 Long term (current) use of anticoagulants; I10 Essential (primary) hypertension; F41.9 Anxiety disorder, unspecified; B96.20 Unspecified Escherichia coli [E. coli] as the cause of diseases classified elsewhere; Z95.0 Presence of cardiac pacemaker; Z86.73 Personal history of transient ischemic attack (TIA), and cerebral infarction without residual deficits